=== PATIENT | female | born 1995 | race Caucasian/White ===

== ENCOUNTER 2016-03-29 18:38 | Emergency (ER) | payer OTHER ==
[~2016-03-29] VITALS: Ht 170.2 cm; Wt 90.5 kg
[2016-03-29] MEDS ORDERED: EXPLANON IM (18:45)
[2016-03-29 19:45] LABS: BASOPHILS % (AUTO) 0.2 % (0.0-2.0); EOSINOPHILS % (AUTO) 3.5 % (1.0-6.0); HEMATOCRIT 37.4 % (36-46); HEMOGLOBIN 12.2 g/dL (12.0-16.0); LYMPHOCYTES # (AUTO) 2.8 K/uL (1.0-4.8); LYMPHOCYTES % (AUTO) 23.4 % (22.0-44.0); MEAN CORPUSCULAR HEMOGLOBIN 27.5 pg (26.0-34.0); MEAN CORPUSCULAR HGB CONC 32.6 G/dL (31.0-37.0); MEAN CORPUSCULAR VOLUME 84 fL (80-100); MONOCYTES # (AUTO) 0.9 K/uL (0.1-1.0); MONOCYTES % (AUTO) 7.1 % (2.0-9.0); NEUTROPHILS # (AUTO) 7.9 K/uL (1.8-7.7); NEUTROPHILS % (AUTO) 65.8 % (40.0-70.0); PLATELET COUNT (AUTO) 296 K/uL (150-450); RED BLOOD CELL COUNT(AUTO) 4.44 MIL/uL (4.00-5.20); RED CELL DISTRIBUTION WIDTH 14.2 % (11.5-14.5); WHITE BLOOD COUNT (AUTO) 12.1 K/uL (4.5-11.0)
[2016-03-29 19:57] LABS: ANION GAP 6 mmol/L (8-16); CALCIUM, TOTAL 9.2 mg/dL (8.8-10.5); CARBON DIOXIDE 29 mmol/L (22-29); CHLORIDE 103 mmol/L (98-107); CREATININE 0.69 mg/dL (0.60-1.30); GLOMERULAR FILTR. RATE CALC > 60 mL/min (>60); POTASSIUM 4.3 mmol/L (3.5-5.1); SODIUM SERUM 138 mmol/L (136-145); UREA NITROGEN, BLOOD 14 mg/dL (7-18)
[2016-03-29 20:03] LABS: ALANINE AMINOTRANSFERASE 17 U/L (12-78); ALBUMIN 3.8 g/dL (3.4-5.0); ASPARTATE AMINOTRANSFERASE 12 U/L (15-37); BILIRUBIN,TOTAL 0.1 mg/dL (0.1-1.0); TOTAL PROTEIN, SERUM 7.8 g/dL (6.4-8.2)
[2016-03-29 20:48] LABS: APPEARANCE,URINE CLOUDY (CLEAR); GLUCOSE, URINE (UA) NEGATIVE (NEGATIVE); KETONES,URINE NEGATIVE (NEGATIVE); LEUKOCYTE ESTERASE ,URINE TRACE (NEGATIVE); OCCULT BLOOD,URINE LARGE (NEGATIVE); PH,URINE 5.5 (5.0-8.0); PROTEIN,URINE TRACE (NEGATIVE)
[2016-03-29 20:57] LABS: ADD UA MICROSCOPIC YES
[2016-03-29 21:40] LABS: RBC,URINE >100 /HPF (0-2)
[2016-03-29 21:41] LABS: SQUAMOUS EPITHELIAL CELL,UR Moderate /LPF (None Seen)
[2016-03-29 22:16] VITALS: BP 142/87
== END 2016-03-29 22:18 | disposition home or self-care (01) ==
LOC: EMS 18:39
DX: N93.8 Other specified abnormal uterine and vaginal bleeding (principal)
CPT/HCPCS: 76830; 76856; 87086; 99285

== ENCOUNTER 2016-09-01 15:23 | Emergency (ER) | payer OTHER ==
[~2016-09-01] VITALS: Ht 170.2 cm; Wt 90.9 kg
[~2016-09-01 15:23] MED LIST: EXPLANON IM
[2016-09-01] MEDS ORDERED: ETON68IM3 SD (15:26)
[2016-09-01 15:37] VITALS: BP 120/76
[2016-09-01] MEDS ORDERED: ALBUTEROL SULFATE HFA 90 MCG/PUFF 8 GM INHALER IH ONE (15:45)
== END 2016-09-01 15:52 | disposition home or self-care (01) ==
LOC: EMS 15:25
DX: J45.909 Unspecified asthma, uncomplicated (principal); J02.9 Acute pharyngitis, unspecified
CPT/HCPCS: 94640; 99283; J3535

== ENCOUNTER 2017-03-12 22:09 | Emergency (ER) | payer OTHER ==
[~2017-03-12] VITALS: Ht 170.2 cm; Wt 100.0 kg
[~2017-03-12 22:09] MED LIST changes: +ETON68IM3 SD; -EXPLANON IM
[2017-03-12] MEDS ORDERED: ALBU8HFA IH (22:25)
[2017-03-13 00:24] VITALS: BP 132/84
[2017-03-13] MEDS: ACETAMINOPHEN 500 MG TABLET PO ONE (00:49)
[2017-03-13] MEDS: DiphenhydrAMINE HCL 25 MG CAPSULE PO ONE (00:49)
== END 2017-03-13 00:58 | disposition home or self-care (01) ==
LOC: EMS 22:11
DX: J06.9 Acute upper respiratory infection, unspecified (principal); R51 Headache; J45.909 Unspecified asthma, uncomplicated
CPT/HCPCS: 99283

== ENCOUNTER 2017-04-25 14:27 | Emergency (ER) | payer OTHER ==
[~2017-04-25] VITALS: Ht 170.2 cm; Wt 106.4 kg
[~2017-04-25 14:27] MED LIST changes: +ALBU8HFA IH
[2017-04-25] MEDS ORDERED: NITR100C9 PO (14:39)
[2017-04-25 15:07] LABS: BASOPHILS % (AUTO) 0.5 % (0.0-2.0); EOSINOPHILS % (AUTO) 4.1 % (1.0-6.0); HEMATOCRIT 37.6 % (36-46); HEMOGLOBIN 12.5 g/dL (12.0-16.0); LYMPHOCYTES # (AUTO) 2.5 K/uL (1.0-4.8); LYMPHOCYTES % (AUTO) 24.6 % (22.0-44.0); MEAN CORPUSCULAR HEMOGLOBIN 27.5 pg (26.0-34.0); MEAN CORPUSCULAR HGB CONC 33.1 G/dL (31.0-37.0); MEAN CORPUSCULAR VOLUME 83 fL (80-100); MONOCYTES # (AUTO) 0.7 K/uL (0.1-1.0); MONOCYTES % (AUTO) 7.2 % (2.0-9.0); NEUTROPHILS # (AUTO) 6.4 K/uL (1.8-7.7); NEUTROPHILS % (AUTO) 63.6 % (40.0-70.0); PLATELET COUNT (AUTO) 290 K/uL (150-450); RED BLOOD CELL COUNT(AUTO) 4.53 MIL/uL (4.00-5.20); RED CELL DISTRIBUTION WIDTH 14.6 % (11.5-14.5)
[2017-04-25 15:48] LABS: APPEARANCE,URINE CLEAR (CLEAR); BILIRUBIN,URINE NEGATIVE (NEGATIVE); GLUCOSE, URINE (UA) NEGATIVE (NEGATIVE); KETONES,URINE NEGATIVE (NEGATIVE); LEUKOCYTE ESTERASE ,URINE NEGATIVE (NEGATIVE); NITRATE,URINE NEGATIVE (NEGATIVE); OCCULT BLOOD,URINE LARGE (NEGATIVE); PH,URINE 7.5 (5.0-8.0); PROTEIN,URINE NEGATIVE (NEGATIVE); UROBILINOGEN,URINE 0.2 mg/dL (<=1.0)
[2017-04-25 16:08] LABS: WBC,URINE 0-2 /HPF (0-5)
[2017-04-25 16:09] LABS: BACTERIA,URINE Many /HPF (None Seen)
[2017-04-25 16:13] LABS: AMORPHOUS SEDIMENT,UR Many /LPF (None Seen); SQUAMOUS EPITHELIAL CELL,UR Moderate /LPF (None Seen)
[2017-04-25 17:36] VITALS: BP 134/68
== END 2017-04-25 18:05 | disposition home or self-care (01) ==
LOC: EMS 14:28
DX: O20.9 Hemorrhage in early pregnancy, unspecified (principal); N39.0 Urinary tract infection, site not specified; J45.909 Unspecified asthma, uncomplicated; Z3A.01 Less than 8 weeks gestation of pregnancy
CPT/HCPCS: 76801; 76817; 87086; 99285